=== PATIENT | female | born 1955 | race Caucasian/White ===

== ENCOUNTER 2025-10-24 15:26 | Observation (INO) | payer MEDICARE, MEDICAID, SELFPAY ==
[2025-10-24] VITALS (19 sets, daily range): BP systolic 144–162; BP diastolic 70–104; PULSE 99–103; RESP 9–24; TEMP 36.3–36.8; O2SAT 90–99; BMI 36.5; BMI 35.2
--- NOTE | 2025-10-24 16:05 | CRLHL7_ITS ---
For Patients: As a result of the Century Cures Act, medical imaging exams and procedure reports are released immediately into your electronic medical record. You may view this report before your referring provider. If you have questions, please contact your health care provider. INDICATION: FALL AND HIT HEAD AND NECK TECHNIQUE: CT of the head without contrast. Coronal and sagittal reformats. Bone and soft tissue algorithms. COMPARISON: No prior studies available for comparison at this institution. FINDINGS: No acute intracranial hemorrhage or extra-axial collection. No evidence of acute cortical infarction. No mass effect or midline shift. Moderate generalized parenchymal volume loss. Moderate regions of decreased attenuation within the periventricular and subcortical white matter of both cerebral hemispheres most likely reflect chronic microvascular ischemic disease and age related change in this patient. Vascular calcifications within the carotid siphons. Orbital contents are normal. No calvarial fractures. No lytic or sclerotic osseous lesions within the calvarium or skull base. Scalp and other imaged soft tissue structures are normal. Mastoid air cells are clear. IMPRESSION: No acute intracranial abnormality. Please note that all CT scans at this facility use dose modulation, iterative reconstruction, and/or weight-based dosing when appropriate to reduce radiation dose to as low as reasonably achievable. Dictated by Gabriel Pimentel MD @ 10/24/2025 5:38:48 PM (Electronically Signed)
--- NOTE | 2025-10-24 16:05 | CRLHL7_ITS ---
For Patients: As a result of the Century Cures Act, medical imaging exams and procedure reports are released immediately into your electronic medical record. You may view this report before your referring provider. If you have questions, please contact your health care provider. Indication: Fall Technique: Noncontrast axial CT of the cervical spine with coronal and sagittal reformats are provided. Comparison: No prior studies available for comparison at this institution. Findings: The overall stature, alignment of the cervical spine is within normal limits. No fractures. Prevertebral soft tissues, cervical airway, dens and lateral masses are within normal limits. Mild scattered degenerative changes of the cervical spine. C1-2: No spinal canal stenosis C2-3: No significant spinal canal stenosis or neural foramen narrowing. C3-4: Moderate interspace narrowing. Posterior disc osteophyte complex and uncovertebral joint hypertrophy. Mild left neural foraminal narrowing. No right neural foraminal narrowing. C4-5: Posterior endplate osteophytic spurring and uncovertebral joint hypertrophy. Mild left neural foraminal narrowing. No right neural foraminal narrowing or significant spinal canal stenosis. C5-6: No significant spinal canal stenosis or neural foramen narrowing. C6-7: Left uncovertebral joint hypertrophy. Mild left neural foraminal narrowing. No significant spinal canal stenosis or right neural foraminal narrowing. C7-T1: No significant spinal canal stenosis or neural foramen narrowing. The lung apices are clear. Impression: 1. No convincing radiographic evidence of acute osseous injury. 2. Scattered degenerative changes of the cervical spine. Please note that all CT scans at this facility use dose modulation, iterative reconstruction, and/or weight-based dosing when appropriate to reduce radiation dose to as low as reasonably achievable. Dictated by Gabriel Pimentel MD @ 10/24/2025 5:45:50 PM (Electronically Signed)
--- NOTE | 2025-10-24 16:05 | CRLHL7_ITS ---
For Patients: As a result of the 21st Century Cures Act, medical imaging exams and procedure reports are released immediately into your electronic medical record. You may view this report before your referring provider. If you have questions, please contact your health care provider. Indication: Fell and hit head, neck pain, left-sided rib and back pain Technique: Postcontrast CT of the chest, abdomen, and pelvis with multiplanar reformats following Isovue mL 370 IV. Comparison: None Findings: Chest: Lungs: No consolidation. No effusion. No pneumothorax. Bibasilar atelectasis and/or scarring. Mediastinum: No acute abnormality appreciated. Lymph nodes: No gross lymphadenopathy. Soft tissues: No acute abnormality appreciated. Bones: No acute abnormality appreciated. Mild spondylosis. Abdomen and Pelvis: Hepatobiliary: No significant parenchymal abnormality is appreciated. Calcific densities are noted appearing to correlate to distal common bile duct with biliary dilation measuring 10 millimeters. Benign biliary cysts. Cholecystectomy. Spleen: Unremarkable. Pancreas: No acute abnormality appreciated. Adrenal glands: No acute abnormality appreciated. Kidneys: Irregularities of the bilateral collecting systems with the left upper pole calices appearing dense and with the right collecting system and renal pelvis demonstrating wall thickening with mild adjacent stranding. Bowel: No obstruction. No focal perienteric or pericolonic stranding is appreciated. Vascular: No acute abnormality appreciated. Trace atherosclerosis. Lymph nodes: No gross lymphadenopathy. Peritoneum: No free air. No free fluid. : Question focal thickening and hyperenhancing nodule along the posterior wall of the bladder measuring 8 millimeters. Soft tissues: Body wall eventration. Bones: No acute fracture. No lytic or blastic lesion. Degenerative changes of the spine and pelvis. Sacral stimulator present. Impression: 1. Irregularity is noted of the bilateral renal collecting systems. The left upper pole calices appear dense, the right collecting system and renal pelvis demonstrates wall thickening and mild adjacent stranding, and there is focal thickening and hyperenhancing nodule suspected along the posterior wall the bladder measuring 8 millimeters. Infectious, inflammatory, and malignant etiologies are on the differential for all of the above. Additionally, given trauma, small volume blood products in the left renal collecting system could give a similar appearance. Correlation with symptoms and laboratory markers recommended, along with a nonemergent outpatient renal protocol CT with added urogram phase. 2. Patient is status post cholecystectomy. There are calcific densities which appear to correlate to the distal common bile duct, with biliary dilation measuring 10 millimeters. No comparison study is available, but question retained stones in the common bile duct. 3. No acute traumatic abnormality appreciated. Please note that all CT scans at this facility use dose modulation, iterative reconstruction, and/or weight-based dosing when appropriate to reduce radiation dose to as low as reasonably achievable. Dictated by Merrill Crouch MD @ 10/24/2025 6:30:33 PM (Electronically Signed)
[2025-10-24 16:38] LABS: Appearance Urine Slightly Cloudy (Clear)
[2025-10-24 16:43] LABS: Creatinine, Point-of-Care* 1.0 mg/dl (0.6-1.3)
[2025-10-24 16:44] LABS: Hematocrit* 39.2 % (33.0-51.0); Hemoglobin* 12.9 gm/dL (12.0-16.0); Immature Granulocytes Abs Auto 0.02 K/uL (0.00-0.30); Immature Granulocytes Pct Auto 0.2 %; Mean Corpuscular HGB Conc 33 gm/dL (32-36); Mean Corpuscular Hemoglobin 29 pg (26-34); Mean Corpuscular Volume 87 fL (80-100); RDW Coefficient of Variation % 14.2 % (11.5-15.5); Red Blood Count* 4.50 m/uL (4.00-5.20); White Blood Count* 8.48 K/uL (4.50-11.00)
[2025-10-24 16:50] LABS: Lymphocytes Absolute Auto 0.60 K/uL (0.90-2.90); Slide Review Reflex No
[2025-10-24 16:57] LABS: Chloride* 99 mmol/L (96-114); Sodium* 136 mmol/L (135-149)
[2025-10-24 16:58] LABS: Potassium* 4.1 mmol/L (3.6-5.1)
[2025-10-24 17:00] LABS: Blood Urea Nitrogen* 20 mg/dL (7-30); Creatinine* 1.0 mg/dL (0.5-1.5); Est. Creatinine Clearance* 53.56; Estimated Glomerular Filt Rate 61 ml/min
[2025-10-24 17:01] LABS: Anion Gap 9 mEq/L (7-15); Calcium* 8.4 mg/dL (8.4-10.6); Carbon Dioxide* 28 mmol/L (20-32); Glucose* 98 mg/dL (60-115)
--- NOTE | 2025-10-24 18:34 | ED.FALL ---
HPI - Fall General Date Seen: 10/24/25 Chief Complaint: Fall/Minor Trauma Stated Complaint: Fall Time Seen by Provider: 10/24/25 15:42 Source: patient, family, RN notes reviewed and old records reviewed Mode of arrival: ambulatory Limitations: no limitations History of Present Illness HPI Narrative: Patient is a 70-year-old female who presents here for evaluation of a fall, she is brought in by EMS, she was actually showering in her daughter's assisted care facility, when she fell in the bathroom, on the threshold landing on the side, she missed the porcelain toilet, but landed on her left side injuring her left chest wall. She also hit her head, with this. She was not knocked out, she denies any nausea or vomiting, numbness tingling or weakness. Or any significant neck pain. This occurred approximately 30 minutes before being seen. She was able to crawl out of the bathroom, get her clothes on and then EMS was called. MD complaint: fall Fall witnessed: no Place fall occurred: home Loss of consciousness: No Symptoms prior to fall: none Context: tripped/slipped Severity: moderate Associated symptoms (after fall): denies Related Data Home Medications ?Medication ?Instructions ?Recorded ?Confirmed aspirin 81 mg tablet,delayed 81 mg PO DAILY 10/24/25 10/24/25 release (Adult Aspirin Regimen) diltiazem HCl 120 mg 120 mg PO DAILY 10/24/25 10/24/25 capsule,extended release 24 hr (Cardizem CD) venlafaxine PO 10/24/25 Allergies Allergy/AdvReac Type Severity Reaction Status Date / Time amoxicillin (From Augmentin) Allergy Unknown Verified 10/24/25 15:36 clavulanic acid (From Allergy Unknown Verified 10/24/25 15:36 Augmentin) Review of Systems Status of ROS: Reports: 10 or more systems reviewed and unremarkable except as noted in History and below [facility] Medical History (Updated 10/24/25 @ 23:52 by Daron Nguyen MD) Anxiety ?F41.9 - Anxiety disorder, unspecified (ICD-10) Depression ?F32.A - Depression, unspecified (ICD-10) Obstructive sleep apnea ?G47.33 - Obstructive sleep apnea (adult) (pediatric) (ICD-10) Paroxysmal atrial fibrillation ?I48.0 - Paroxysmal atrial fibrillation (ICD-10) 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 (ICD-10) Cervical cancer ?C53.9 - Malignant neoplasm of cervix uteri, unspecified (ICD-10) Surgical History (Updated 10/24/25 @ 23:52 by Daron Nguyen MD) History of arthroplasty of right knee ?Z96.651 - Presence of right artificial knee joint (ICD-10) History of cataract extraction with lens replacement History of appendectomy ?Z90.49 - Acquired absence of other specified parts of digestive tract (ICD-10) History of cholecystectomy ?Z90.49 - Acquired absence of other specified parts of digestive tract (ICD-10) Family History (Updated 10/24/25 @ 23:53 by Daron Nguyen MD) Father Heart disease COPD (chronic obstructive pulmonary disease) Bladder cancer Sister Heart disease Social History (Updated 10/24/25 @ 23:55 by Daron Nguyen MD) Narrative: She lives alone in [place]. He when she fell today she was visiting her 90-year-old mother's assisted living apartment in [place]. She plans to go back there when she is discharged from the hospital. She has another sister, Orin Cunningham, who also lives in [place]. Her sister Orin is healthcare power of commercial litigation attorney. Code status is full. She has remote history of smoking. She does not drink alcohol. What is your current living situation?: I presently have a place to live Problems where you live: no known problems In the past 12 months, utilities in danger of being shut off: no In past 12 months, lack of transportation kept you from medical appts, meetings, work, or getting things needed for daily living: no In the past 12 mos, have been you worried that your food would run out before you had money to buy more?: never true In the past 12 mos, the food you bought just didn't last and you didn't have money to buy more?: never true Smoking Status: Former smoker How often do you have a drink containing alcohol: never AUDIT-C Alcohol total score: 0 Non-prescribed substance use: denies use Caffeine: No How often does anyone, including family, friends and others, physically hurt you: never How often does anyone, including family, friends and others, insult or talk down to you: never How often does anyone, including family, friends and others, threaten you with harm: never How often does anyone, including family, friends and others, scream or curse at you: never service: No Exam Narrative: Exam Narrative: Patient is seen in assessed in room 3, she is lying down, she is able to roll onto her left side complaining of pain over her left side of her ribs. She has no evidence of trauma over head or neck region, she is alert oriented x3, speaking to me normally her pupils equal round reactive to light her TMs are normal, no evidence of any bruising noted over head, her neck is supple full range of motion is noted in flexion extension lateral flexion and rotation. With no tenderness over C-spine, her chest is good air entry bilaterally, but she does splint a little bit on the left side, and palpation over her lateral axillary line ribs 7 through 10. Her somewhat tender. Heart sounds no clicks murmurs or gallops her abdomen is soft and obese, there is no guarding no organomegaly bowel sounds are normal, she moves all extremities independently and well. While I was just walking out of the room, the nurse came and got me, she P the urine, that was bloody read, CT scans of her chest abdomen pelvis the head and neck are ordered. Const: Vital Signs, click to edit/add: Vital Signs - 24 hr 10/24/25 15:29 10/24/25 15:32 10/24/25 16:29 Temperature 97.4 F L Pulse Rate 99 Pulse Rate [Pulse Oximeter] 99 Respiratory Rate 16 Blood Pressure 144/72 H Blood Pressure [Ri ght Upper Arm] 144/72 H Pulse Oximetry 93 93 95 Oxygen Delivery Me thod Room Air 10/24/25 17:04 10/24/25 18:02 10/24/25 19:00 Temperature Pulse Rate 100 100 103 H Pulse Rate [Pulse Oximeter] Respiratory Rate 12 20 11 L Blood Pressure 153/95 H 162/104 H Blood Pressure [Ri ght Upper Arm] Pulse Oximetry 93 96 91 Oxygen Delivery Me thod 10/24/25 19:01 10/24/25 19:17 10/24/25 19:30 Temperature Pulse Rate 101 H 101 H 102 H Pulse Rate [Pulse Oximeter] Respiratory Rate 18 14 13 Blood Pressure 150/88 H 159/80 H Blood Pressure [Ri ght Upper Arm] Pulse Oximetry 93 94 90 Oxygen Delivery Me thod 10/24/25 19:33 10/24/25 19:47 10/24/25 20:00 Temperature Pulse Rate 103 H 101 H 100 Pulse Rate [Pulse Oximeter] Respiratory Rate 16 14 9 L Blood Pressure 157/84 H 154/81 H Blood Pressure [Ri ght Upper Arm] Pulse Oximetry 90 92 90 Oxygen Delivery Me thod 10/24/25 20:03 10/24/25 20:22 10/24/25 20:42 Temperature Pulse Rate 102 H 101 H 100 Pulse Rate [Pulse Oximeter] Respiratory Rate 15 18 18 Blood Pressure 145/82 H 160/97 H 162/84 H Blood Pressure [Ri ght Upper Arm] Pulse Oximetry 90 91 90 Oxygen Delivery Me thod 10/24/25 21:02 10/24/25 21:22 Temperature Pulse Rate 100 100 Pulse Rate [Pulse Oximeter] Respiratory Rate 24 14 Blood Pressure 160/74 H 162/82 H Blood Pressure [Ri ght Upper Arm] Pulse Oximetry 91 91 Oxygen Delivery Me thod Course Vital Signs Vital signs: Initial Vital Signs Pulse Rate 99 10/24/25 15:29 Blood Pressure 144/72 H 10/24/25 15:29 Blood Pressure Mean 96 10/24/25 15:29 Pulse Oximetry 93 10/24/25 15:29 Vital Signs Pulse Rate 99 10/24/25 15:29 Blood Pressure 144/72 H 10/24/25 15:29 Pulse Oximetry 93 10/24/25 15:29 Temperature 98.3 F 10/24/25 22:49 Pulse Rate 99 10/24/25 23:00 Respiratory Rate 16 10/24/25 23:00 Blood Pressure 159/70 H 10/24/25 22:49 Pulse Oximetry 94 10/24/25 22:49 Oxygen Delivery Method Room Air 10/24/25 22:49 Medications Administered Medications: Discontinued Medications Generic Name Dose Route Start Last Admin Trade Name Freq PRN Reason Stop Dose Admin Hydrocodone Bitart/Acetaminophen 2 tab 10/24/25 21:23 10/24/25 21:28 Hydrocodone-Acetamin 5-325 Mg 1 Tab PO 10/24/25 21:24 2 tab ONCE ONE Administration Hydromorphone HCl 0.5 mg 10/24/25 16:05 10/24/25 16:33 Hydromorphone 0.5 Mg/0.5 Ml Inj IVP 10/24/25 16:06 0.5 mg ONCE ONE Administration Hydromorphone HCl 0.5 mg 10/24/25 18:10 10/24/25 18:17 Hydromorphone 0.5 Mg/0.5 Ml Inj IVP 10/24/25 18:11 0.5 mg ONCE ONE Administration Sodium Chloride 1,000 mls @ 1,000 mls/hr 10/24/25 16:15 10/24/25 18:04 0.9 % Sodium Chloride 1000 Ml IV 10/24/25 17:14 Infused .Q1H GRACIELA Infusion Sodium Chloride 1,000 mls @ 1,000 mls/hr 10/24/25 19:00 10/24/25 20:09 0.9 % Sodium Chloride 1000 Ml IV 10/24/25 19:59 Infused .Q1H GRACIELA Infusion - Fall Lab Data Labs: Lab Results 10/24/25 10/24/25 10/24/25 Range/Units 16:06 16:15 16:43 WBC 8.48 (4.50-11.00) K/uL RBC 4.50 (4.00-5.20) m/uL Hgb 12.9 (12.0-16.0) gm/dL Hct 39.2 (33.0-51.0) % MCV 87 (80-100) fL MCH 29 (26-34) pg MCHC 33 (32-36) gm/dL RDW Coeff of [place] 14.2 (11.5-15.5) % Plt Count 214 (140-440) K/uL Neut % (Auto) 87.2 H (42.0-72.0) % Lymph % (Auto) 7.3 L (20-44) % [place] % (Auto) 4.4 (0.0-11.0) % Eos % (Auto) 0.8 (0.0-7.0) % Baso % (Auto) 0.1 (0.0-3.0) % Neut # (Auto) 7.40 H (1.7-7.0) K/uL Lymph # (Auto) 0.60 L (0.90-2.90) K/uL [place] # (Auto) 0.40 (0.00-0.90) K/UL Eos # (Auto) 0.07 (0.00-0.50) K/uL Baso # (Auto) 0.01 (0.00-0.30) K/uL Abs Immat Gran (auto) 0.02 (0.00-0.30) K/uL Imm/Tot Granulo (auto) 0.2 % Sodium 136 (135-149) mmol/L Potassium 4.1 (3.6-5.1) mmol/L Chloride 99 (96-114) mmol/L Carbon Dioxide 28 (20-32) mmol/L Anion Gap 9 (7-15) mEq/L BUN 20 (7-30) mg/dL Creatinine 1.0 (0.5-1.5) mg/dL Estimated Creat Clear 53.56 Estimated GFR 61 ml/min Glucose 98 (60-115) mg/dL Calcium 8.4 (8.4-10.6) mg/dL Urine Color Brown A (Yellow) Urine Appearance Slightly Cloudy A (Clear) Urine pH 6.0 (5.0-8.5) Ur Specific [place] 1.025 (1.000-1.030) Urine Protein 3+ A (Negative) Urine Glucose (UA) Negative (Negative) Urine Ketones Negative (Negative) Urine Blood 3+ A (Negative) Urine Nitrite Positive A (Negative) Urine Bilirubin 1+ A (Negative) Urine Urobilinogen 2.0 A (0.2-1.0) Ur Leukocyte Esterase Trace A (Negative) Urine RBC >100 A (0-2) Urine WBC 5-10 A (0-5) Ur Squamous Epith Cells Few (None-Few) Urine Bacteria Few A (None) POC Creatinine 1.0 (0.6-1.3) mg/dl Discharge Plan Discharge Clinical Impression: Fall, Hematuria, Closed rib fracture Patient Disposition: Admitted As Observation Condition: Improved Activity Level: Light activity Discharge Diet: Regular
[2025-10-24] MEDS: HYDROCODONE-ACETAMIN 5-325 MG 1 TAB 2 TAB PO (21:28)
--- NOTE | 2025-10-24 23:34 | PM.IMHP1 ---
Assessment and Plan Assessment and plan (1) Kidney trauma: Problem comment: Fell on left flank, CT shows possible hematoma in the kidney. Patient had gross hematuria which is resolving. Conservative management Status: Acute (2) Fall: Problem comment: Accidental fall. Evaluate mobility Status: Acute (3) Traumatic injury of rib: Problem comment: Left lower rib injury with possible rib fracture. Conservative management Status: Acute (4) Obstructive sleep apnea: Problem comment: Recently had a home sleep study. Results are pending. Clinically appears suspicious for MARIBN. Caution with opioids. Status: Suspected (5) Inadequate pain control: Problem comment: Patient has had difficulty managing pain since her fall. Currently unable to reposition in bed without severe pain. Initiate multi modal control with topical ice, naproxen and oxycodone. Status: Acute (6) Obesity (BMI 30-39.9): Status: Acute Plan 70-year-old female with recent fall and left flank, kidney, rib injuries and severe pain. Admit for pain control and monitoring for complications of injury to kidney and chest wall. Anticipate potential for some respiratory compromise due to rib injury, sleep apnea, opioid pain management. Total Time Spent Total Time Spent: Total time spent is 70 minutes in coordination of care, reviewing outside records, discussing with patient ongoing management of pain. Hospitalist- H&P: HPI History of Present Illness Time Seen by Provider: 23:34 Date Seen: 10/24/25 Chief complaint: Fall Narrative: Usha Howard is a 70 year old female admitted to the hospital after a fall injuring her left flank/ribs. She was at her mother's assisted living apartment in [place]. She was taking a shower and stepping over the threshold of the walk-in shower when she lost her balance and fell landing on her left lower ribs. She said she also hit her head. She denies loss of consciousness. She reports that she was feeling well before this happened and there was no sense of lightheadedness or presyncope. She was not dizzy. she just lost her balance. She reports normally that she walks independently with good balance. Because of the severity of pain she called 911. In the emergency department evaluation showed changes to both kidneys including findings in the left kidney that could be markers for small hematoma and bleeding. Also abnormalities around the gallbladder possibly indicating stones in the common bile duct. Patient has had no GI symptoms or pain in that area. Initially she had visible blood in her urine, gross hematuria, which resolved during her emergency department stay. She was unable to move secondary to pain and so was admitted for management of her pain. Review of Systems Narrative: She reports known new or acute illness or injury other than outlined above. She does have significant bowel and bladder problems secondary to radiation treatment for cervical cancer Medical Decision Making Medical Decision Making Has patient completed a Health Care Directive: No During This Stay, Who Would You Like To Make Decisions For You In The Event You Are Unable To Make Them For Yourself?: Orin Cunningham, sister [facility] Medical History (Updated 10/25/25 @ 00:01 by Daron Nugyen MD) Obesity (BMI 30-39.9) ?E66.9 - Obesity, unspecified (ICD-10) Anxiety ?F41.9 - Anxiety disorder, unspecified (ICD-10) Depression ?F32.A - Depression, unspecified (ICD-10) Obstructive sleep apnea ?G47.33 - Obstructive sleep apnea (adult) (pediatric) (ICD-10) Paroxysmal atrial fibrillation ?I48.0 - Paroxysmal atrial fibrillation (ICD-10) 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 (ICD-10) Cervical cancer ?C53.9 - Malignant neoplasm of cervix uteri, unspecified (ICD-10) Surgical History (Updated 10/24/25 @ 23:52 by Daron Nguyen MD) History of arthroplasty of right knee ?Z96.651 - Presence of right artificial knee joint (ICD-10) History of cataract extraction with lens replacement History of appendectomy ?Z90.49 - Acquired absence of other specified parts of digestive tract (ICD-10) History of cholecystectomy ?Z90.49 - Acquired absence of other specified parts of digestive tract (ICD-10) Family History (Updated 10/24/25 @ 23:53 by Daron Nguyen MD) Father Heart disease COPD (chronic obstructive pulmonary disease) Bladder cancer Sister Heart disease Social History (Updated 10/24/25 @ 23:55 by Daron Nguyen MD) Narrative: She lives alone in [place]. He when she fell today she was visiting her 90-year-old mother's assisted living apartment in [place]. She plans to go back there when she is discharged from the hospital. She has another sister, Orin Cunningham, who also lives in [place]. Her sister Orin is healthcare power of assistant county attorney. Code status is full. She has remote history of smoking. She does not drink alcohol. What is your current living situation?: I presently have a place to live Problems where you live: no known problems In the past 12 months, utilities in danger of being shut off: no In past 12 months, lack of transportation kept you from medical appts, meetings, work, or getting things needed for daily living: no In the past 12 mos, have been you worried that your food would run out before you had money to buy more?: never true In the past 12 mos, the food you bought just didn't last and you didn't have money to buy more?: never true Smoking Status: Former smoker How often do you have a drink containing alcohol: never AUDIT-C Alcohol total score: 0 Non-prescribed substance use: denies use Caffeine: No How often does anyone, including family, friends and others, physically hurt you: never How often does anyone, including family, friends and others, insult or talk down to you: never How often does anyone, including family, friends and others, threaten you with harm: never How often does anyone, including family, friends and others, scream or curse at you: never service: No Meds Home Medications and Allergies Home Medications ?Medication ?Instructions ?Recorded ?Confirmed ?Type aspirin 81 mg tablet,delayed 81 mg PO DAILY 10/24/25 10/24/25 History release (Adult Aspirin Regimen) diltiazem HCl 120 mg 120 mg PO DAILY 10/24/25 10/24/25 History capsule,extended release 24 hr (Cardizem CD) venlafaxine PO 10/24/25 History Home Medication Comments: Venlafaxine 225 mg at bedtime. All meds taken at bedtime Allergies Allergy/AdvReac Type Severity Reaction Status Date / Time amoxicillin (From Augmentin) Allergy Unknown Verified 10/24/25 15:36 clavulanic acid (From Allergy Unknown Verified 10/24/25 15:36 Augmentin) Exam Narrative: Exam Narrative: She is alert and appears in no distress lying supine in bed. She gives her own history with good detail. Eyes normal. No facial asymmetry. Oropharynx with small airway. Neck is supple without mass or adenopathy. She is unable to sit up or significantly roll over in bed. Attempts to do so are quite painful in her left flank. This is in approximately the mid axillary line at approximately the costal margin on the left but the whole left side of her chest wall is quite tender. Small bruising is present in this area as well. Respirations are clear to auscultation without wheezing rales or rhonchi. Cardiovascular: S1, S2, regular rate and rhythm. Abdomen: Bowel sounds active. Abdomen is soft with tenderness in the left upper quadrant near the costal margin. No mass. No right upper quadrant tenderness. Upper extremities without obvious trauma. Lower extremities without obvious trauma. In the left proximal anterior thigh she has a scar which she attributes to an abscess that formed there after her appendix ruptured when she was young. She has intact pedal pulses bilateral trace edema. Const: Vital Signs, click to edit/add: Vital Signs - 24 hr 10/24/25 15:29 10/24/25 15:32 10/24/25 16:29 Temperature 97.4 F L Pulse Rate 99 Pulse Rate [Pulse Oximeter] 99 Respiratory Rate 16 Blood Pressure 144/72 H Blood Pressure [Ri ght Arm] Blood Pressure [Ri ght Upper Arm] 144/72 H Pulse Oximetry 93 93 95 Oxygen Delivery Me thod Room Air 10/24/25 17:04 10/24/25 18:02 10/24/25 19:00 Temperature Pulse Rate 100 100 103 H Pulse Rate [Pulse Oximeter] Respiratory Rate 12 20 11 L Blood Pressure 153/95 H 162/104 H Blood Pressure [Ri ght Arm] Blood Pressure [Ri ght Upper Arm] Pulse Oximetry 93 96 91 Oxygen Delivery Me thod 10/24/25 19:01 10/24/25 19:17 10/24/25 19:30 Temperature Pulse Rate 101 H 101 H 102 H Pulse Rate [Pulse Oximeter] Respiratory Rate 18 14 13 Blood Pressure 150/88 H 159/80 H Blood Pressure [Ri ght Arm] Blood Pressure [Ri ght Upper Arm] Pulse Oximetry 93 94 90 Oxygen Delivery Me thod 10/24/25 19:33 10/24/25 19:47 10/24/25 20:00 Temperature Pulse Rate 103 H 101 H 100 Pulse Rate [Pulse Oximeter] Respiratory Rate 16 14 9 L Blood Pressure 157/84 H 154/81 H Blood Pressure [Ri ght Arm] Blood Pressure [Ri ght Upper Arm] Pulse Oximetry 90 92 90 Oxygen Delivery Me thod 10/24/25 20:03 10/24/25 20:22 10/24/25 20:42 Temperature Pulse Rate 102 H 101 H 100 Pulse Rate [Pulse Oximeter] Respiratory Rate 15 18 18 Blood Pressure 145/82 H 160/97 H 162/84 H Blood Pressure [Ri ght Arm] Blood Pressure [Ri ght Upper Arm] Pulse Oximetry 90 91 90 Oxygen Delivery Me thod 10/24/25 21:02 10/24/25 21:22 10/24/25 22:49 Temperature 98.3 F Pulse Rate 100 100 Pulse Rate [Pulse Oximeter] 99 Respiratory Rate 24 14 16 Blood Pressure 160/74 H 162/82 H Blood Pressure [Ri ght Arm] 159/70 H Blood Pressure [Ri ght Upper Arm] Pulse Oximetry 91 91 99 Oxygen Delivery Me thod Room Air 10/24/25 22:49 10/24/25 23:00 Temperature Pulse Rate Pulse Rate [Pulse Oximeter] 99 Respiratory Rate 16 16 Blood Pressure Blood Pressure [Ri ght Arm] Blood Pressure [Ri ght Upper Arm] Pulse Oximetry 94 Oxygen Delivery Me thod Room Air Documenting provider has reviewed patient's vital signs: yes Hospitalist - H&P: Result Labs Labs: Short CBC 10/24/25 Range/Units 16:06 WBC 8.48 (4.50-11.00) K/uL Hgb 12.9 (12.0-16.0) gm/dL Hct 39.2 (33.0-51.0) % Plt Count 214 (140-440) K/uL BMP 10/24/25 16:06 Sodium 136 Potassium 4.1 Chloride 99 Carbon Dioxide 28 BUN 20 Creatinine 1.0 Glucose 98 Calcium 8.4 Urine 10/24/25 Range/Units 16:15 Urine Color Brown A (Yellow) Urine Appearance Slightly Cloudy A (Clear) Urine pH 6.0 (5.0-8.5) Ur Specific [place] 1.025 (1.000-1.030) Urine Protein 3+ A (Negative) Urine Glucose (UA) Negative (Negative) Imaging CT Chest/Ab/Pelvis: Radiologist's impression: Indication: Fell and hit head, neck pain, left-sided rib and back pain Technique: Postcontrast CT of the chest, abdomen, and pelvis with multiplanar reformats following Isovue mL 370 IV. Comparison: None Findings: Chest: Lungs: No consolidation. No effusion. No pneumothorax. Bibasilar atelectasis and/or scarring. Mediastinum: No acute abnormality appreciated. Lymph nodes: No gross lymphadenopathy. Soft tissues: No acute abnormality appreciated. Bones: No acute abnormality appreciated. Mild spondylosis. Abdomen and Pelvis: Hepatobiliary: No significant parenchymal abnormality is appreciated. Calcific densities are noted appearing to correlate to distal common bile duct with biliary dilation measuring 10 millimeters. Benign biliary cysts. Cholecystectomy. Spleen: Unremarkable. Pancreas: No acute abnormality appreciated. Adrenal glands: No acute abnormality appreciated. Kidneys: Irregularities of the bilateral collecting systems with the left upper pole calices appearing dense and with the right collecting system and renal pelvis demonstrating wall thickening with mild adjacent stranding. Bowel: No obstruction. No focal perienteric or pericolonic stranding is appreciated. Vascular: No acute abnormality appreciated. Trace atherosclerosis. Lymph nodes: No gross lymphadenopathy. Peritoneum: No free air. No free fluid. : Question focal thickening and hyperenhancing nodule along the posterior wall of the bladder measuring 8 millimeters. Soft tissues: Body wall eventration. Bones: No acute fracture. No lytic or blastic lesion. Degenerative changes of the spine and pelvis. Sacral stimulator present. Impression: 1. Irregularity is noted of the bilateral renal collecting systems. The left upper pole calices appear dense, the right collecting system and renal pelvis demonstrates wall thickening and mild adjacent stranding, and there is focal thickening and hyperenhancing nodule suspected along the posterior wall the bladder measuring 8 millimeters. Infectious, inflammatory, and malignant etiologies are on the differential for all of the above. Additionally, given trauma, small volume blood products in the left renal collecting system could give a similar appearance. Correlation with symptoms and laboratory markers recommended, along with a nonemergent outpatient renal protocol CT with added urogram phase. 2. Patient is status post cholecystectomy. There are calcific densities which appear to correlate to the distal common bile duct, with biliary dilation measuring 10 millimeters. No comparison study is available, but question retained stones in the common bile duct. 3. No acute traumatic abnormality appreciated.
[2025-10-25] MEDS: ASPIRIN 81 MG TABLET EC PO ×2 (00:11→20:41)
[2025-10-25] MEDS: NAPROXEN 250 MG TABLET PO ×3 (00:11→17:30)
[2025-10-25] MEDS: VENLAFAXINE ER 75 MG CAPSULE 225 MG PO ×2 (00:12→20:41)
[2025-10-25 03:00] VITALS: BP 138/93; PULSE 88; RESP 18; TEMP 36.8; O2SAT 92
[2025-10-25] MEDS: OXYCODONE 1 MG/ML ORAL SOLN 5 MG PO ×2 (03:48→08:53)
[2025-10-25 07:00] VITALS: BP 150/73; PULSE 88; RESP 18; TEMP 36.4; O2SAT 92
[2025-10-25] MEDS: SODIUM CHLORIDE 0.9 % (FLUSH) 10 ML SYRINGE 5 ML IVF ×2 (08:58→20:42)
[2025-10-25 11:00] VITALS: BP 151/76; PULSE 85; RESP 18; TEMP 36.6; O2SAT 93
[2025-10-25] MEDS: ACETAMINOPHEN 325 MG TABLET 650 MG PO ×2 (12:43→20:54)
[2025-10-25 13:58] LABS: Appearance Urine Slightly Cloudy (Clear)
--- NOTE | 2025-10-25 14:09 | PC.SOCIAL ---
Discharge planning: Met with pt regarding d/c planning. Pt lives in her own home in [place], [place] and is visiting and staying with her mother this week who lives in [facility] in [place], [place]. She fell at her mother's home. Pt plans to return to her mother's home at discharge. She does not expect to need any assistance at discharge and does not need to help her mother with anything at her home. Pt states she will stay with her mother for awhile and then move back to her own home. Pt shared she had knee surgery previously and has all the DME needed for her recovery from that at her home in [place]. Pt states she will decide what DME she needs after discharge and her sister could drive to her home to get anything she needs. Pt states her sister, Orin, will pick her up for the ride to her mother's home at discharge. Pt states that if there are any prescriptions needed at discharge, she would like those sent to [facility] in [place]. Pt is aware fo how to contact social work job titles if needed.
[2025-10-25 15:00] VITALS: BP 150/78; PULSE 83; RESP 18; O2SAT 91
--- NOTE | 2025-10-25 15:06 | PM.IMPN1 ---
Assessment and Plan Assessment and plan (1) Kidney trauma: Problem comment: Fell on left flank, CT shows possible hematoma in the kidney. Patient had gross hematuria which is resolving. Conservative management - 10/25 Urine remains grossly bloody, 3+. UC pending. I called urology at [facility] (I did not yet know patient had previously seen a urologist at [facility]), and spoke with Queta Canales, urology PA. She told me she was having her urologist look at the CT abd/pelvis images I had pushed to them and recommended continued monitoring in the hospital for now while we wait for UC and said she would have the urologist call us once he'd looked at the images. I gave Usha an update about this. Since UO is low, I will start LR at 125cc/hr. Recheck Hgb and BMP in am. Status: Acute (2) Traumatic injury of rib: Problem comment: Left lower rib injury with possible rib fracture. Conservative management Status: Acute (3) Fall: Problem comment: Accidental fall. Mobility improving. Seen by PT today. Okay to d/c home when medically ready. Status: Acute (4) Inadequate pain control: Problem comment: Patient has had difficulty managing pain since her fall. Currently unable to reposition in bed without severe pain. Initiate multi modal control with topical ice, naproxen and oxycodone. Status: Acute (5) Obstructive sleep apnea: Problem comment: Recently had a home sleep study. Results are pending. Clinically appears suspicious for MARBIN. Caution with opioids. Status: Suspected (6) Obesity (BMI 30-39.9): Status: Acute Total Time Spent Total Time Spent: Today I spent 50 minutes seeing the patient, discussing with Urology, discussing with the patient, reviewing [facility] and EPIC notes/diagnostics/labs, discussing the care plan with our care team that includes social work, PT/OT, pharmacy, RT, long term and documenting my impressions and plan in the medical record. Subjective Time Seen by Provider: 10:49 Date Seen: 10/25/25 Interval history: Usha tells me she has a bit less pain today and is able to move better. She is concerned that her urine seemed like it was clearing up, but now it seems to her that it is getting bloodier again. Denies any gross hematuria or urinary symptoms prior to fall. Nurse reports low UO. Exam Narrative: Exam Narrative: General: No acute distress. Awake, alert, oriented. No pallor. No jaundice. Urine in external catheter grossly bloody, without clots. Oropharynx: Clear. Mucous membranes moist. Cardiovascular: Regular rate and rhythm. No murmurs, gallops, or rubs. Respiratory: Clear to auscultation bilaterally. No wheezes or crackles. Abdomen: Bowel sounds present. Soft, nondistended, nontender. Back: 2 linear areas of ecchymosis over the left flank, inferior to the costal margin. This area is tender to palpation, no fluctuance or mass noted. Cervical, thoracic, lumbar and sacral spines are nontender to palpation. There is tenderness over the SI joints bilaterally, left more than right. Extremities: No lower extremity edema. Const: Vital Signs, click to edit/add: Vital Signs - 24 hr 10/24/25 15:29 10/24/25 15:32 10/24/25 16:29 Temperature 97.4 F L Pulse Rate 99 Pulse Rate [Pulse Oximeter] 99 Respiratory Rate 16 Blood Pressure 144/72 H Blood Pressure [Ri ght Arm] Blood Pressure [Ri ght Upper Arm] 144/72 H Pulse Oximetry 93 93 95 Oxygen Delivery Me thod Room Air 10/24/25 17:04 10/24/25 18:02 10/24/25 19:00 Temperature Pulse Rate 100 100 103 H Pulse Rate [Pulse Oximeter] Respiratory Rate 12 20 11 L Blood Pressure 153/95 H 162/104 H Blood Pressure [Ri ght Arm] Blood Pressure [Ri ght Upper Arm] Pulse Oximetry 93 96 91 Oxygen Delivery Me thod 10/24/25 19:01 10/24/25 19:17 10/24/25 19:30 Temperature Pulse Rate 101 H 101 H 102 H Pulse Rate [Pulse Oximeter] Respiratory Rate 18 14 13 Blood Pressure 150/88 H 159/80 H Blood Pressure [Ri ght Arm] Blood Pressure [Ri ght Upper Arm] Pulse Oximetry 93 94 90 Oxygen Delivery Me thod 10/24/25 19:33 10/24/25 19:47 10/24/25 20:00 Temperature Pulse Rate 103 H 101 H 100 Pulse Rate [Pulse Oximeter] Respiratory Rate 16 14 9 L Blood Pressure 157/84 H 154/81 H Blood Pressure [Ri ght Arm] Blood Pressure [Ri ght Upper Arm] Pulse Oximetry 90 92 90 Oxygen Delivery Me thod 10/24/25 20:03 10/24/25 20:22 10/24/25 20:42 Temperature Pulse Rate 102 H 101 H 100 Pulse Rate [Pulse Oximeter] Respiratory Rate 15 18 18 Blood Pressure 145/82 H 160/97 H 162/84 H Blood Pressure [Ri ght Arm] Blood Pressure [Ri ght Upper Arm] Pulse Oximetry 90 91 90 Oxygen Delivery Me thod 10/24/25 21:02 10/24/25 21:22 10/24/25 22:49 Temperature 98.3 F Pulse Rate 100 100 Pulse Rate [Pulse Oximeter] 99 Respiratory Rate 24 14 16 Blood Pressure 160/74 H 162/82 H Blood Pressure [Ri ght Arm] 159/70 H Blood Pressure [Ri ght Upper Arm] Pulse Oximetry 91 91 99 Oxygen Delivery Me thod Room Air 10/24/25 22:49 10/24/25 23:00 10/25/25 03:00 Temperature 98.3 F Pulse Rate Pulse Rate [Pulse Oximeter] 99 88 Respiratory Rate 16 16 18 Blood Pressure Blood Pressure [Ri ght Arm] 138/93 H Blood Pressure [Ri ght Upper Arm] Pulse Oximetry 94 92 Oxygen Delivery Me thod Room Air Room Air 10/25/25 07:00 10/25/25 07:00 10/25/25 11:00 Temperature 97.5 F L 97.8 F Pulse Rate Pulse Rate [Pulse Oximeter] 88 85 Respiratory Rate 18 18 Blood Pressure Blood Pressure [Ri ght Arm] 150/73 H 151/76 H Blood Pressure [Ri ght Upper Arm] Pulse Oximetry 92 92 93 Oxygen Delivery Me thod Room Air Room Air Room Air Documenting provider has reviewed patient's vital signs: yes Labs Labs: Laboratory Results - last 24 hr 10/24/25 10/24/25 10/24/25 16:06 16:15 16:43 WBC 8.48 RBC 4.50 Hgb 12.9 Hct 39.2 MCV 87 MCH 29 MCHC 33 RDW Coeff of [place] 14.2 Plt Count 214 Neut % (Auto) 87.2 H Lymph % (Auto) 7.3 L [place] % (Auto) 4.4 Eos % (Auto) 0.8 Baso % (Auto) 0.1 Neut # (Auto) 7.40 H Lymph # (Auto) 0.60 L [place] # (Auto) 0.40 Eos # (Auto) 0.07 Baso # (Auto) 0.01 Abs Immat Gran (auto) 0.02 Imm/Tot Granulo (auto) 0.2 Sodium 136 Potassium 4.1 Chloride 99 Carbon Dioxide 28 Anion Gap 9 BUN 20 Creatinine 1.0 Estimated Creat Clear 53.56 Estimated GFR 61 Glucose 98 Calcium 8.4 Urine Color Brown A Urine Appearance Slightly Cloudy A Urine pH 6.0 Ur Specific [place] 1.025 Urine Protein 3+ A Urine Glucose (UA) Negative Urine Ketones Negative Urine Blood 3+ A Urine Nitrite Positive A Urine Bilirubin 1+ A Urine Urobilinogen 2.0 A Ur Leukocyte Esterase Trace A Urine RBC >100 A Urine WBC 5-10 A Ur Squamous Epith Cells Few Urine Bacteria Few A POC Creatinine 1.0 10/25/25 13:43 WBC RBC Hgb Hct MCV MCH MCHC RDW Coeff of [place] Plt Count Neut % (Auto) Lymph % (Auto) [place] % (Auto) Eos % (Auto) Baso % (Auto) Neut # (Auto) Lymph # (Auto) [place] # (Auto) Eos # (Auto) Baso # (Auto) Abs Immat Gran (auto) Imm/Tot Granulo (auto) Sodium Potassium Chloride Carbon Dioxide Anion Gap BUN Creatinine Estimated Creat Clear Estimated GFR Glucose Calcium Urine Color Brown A Urine Appearance Slightly Cloudy A Urine pH 6.5 Ur Specific [place] 1.015 Urine Protein 2+ A Urine Glucose (UA) Negative Urine Ketones Negative Urine Blood 3+ A Urine Nitrite Positive A Urine Bilirubin Negative Urine Urobilinogen 0.2 Ur Leukocyte Esterase 1+ A Urine RBC Urine WBC Ur Squamous Epith Cells Urine Bacteria POC Creatinine
[2025-10-25] MEDS: LACTATED RINGERS 1000 ML 1,000 ML 125 ML IV (15:35)
[2025-10-25 16:25] LABS: Hematocrit* 38.1 % (33.0-51.0); Hemoglobin* 12.0 gm/dL (12.0-16.0); Immature Granulocytes Abs Auto 0.01 K/uL (0.00-0.30); Immature Granulocytes Pct Auto 0.2 %; Lymphocytes Absolute Auto 0.90 K/uL (0.90-2.90); Mean Corpuscular HGB Conc 32 gm/dL (32-36); Mean Corpuscular Hemoglobin 28 pg (26-34); Mean Corpuscular Volume 90 fL (80-100); RDW Coefficient of Variation % 14.7 % (11.5-15.5); Red Blood Count* 4.25 m/uL (4.00-5.20); Slide Review Reflex No; White Blood Count* 5.72 K/uL (4.50-11.00)
[2025-10-25 16:38] LABS: Chloride* 100 mmol/L (96-114)
[2025-10-25 16:39] LABS: Potassium* 4.1 mmol/L (3.6-5.1); Sodium* 136 mmol/L (135-149)
[2025-10-25 16:41] LABS: Blood Urea Nitrogen* 12 mg/dL (7-30); Creatinine* 1.1 mg/dL (0.5-1.5); Est. Creatinine Clearance* 48.69; Estimated Glomerular Filt Rate 54 ml/min
[2025-10-25 16:42] LABS: Anion Gap 7 mEq/L (7-15); Calcium* 8.4 mg/dL (8.4-10.6); Carbon Dioxide* 29 mmol/L (20-32); Glucose* 113 mg/dL (60-115)
--- NOTE | 2025-10-25 18:43 | PC.NURSE ---
End of Shift Note 256 Patient has been very pleasant and cooperative throughout shift. VSS. Afebrile. Patient has two 2bruises on her left flank. She states pain is considerable with movement. A&Ox3 with intermittent periods of forgetfulness. Uses call light appropriately. Purewick in place. Call light with reach.
[2025-10-25 19:00] VITALS: BP 140/73; PULSE 86; RESP 18; TEMP 36.3; O2SAT 92
[2025-10-25 22:54] VITALS: BP 136/72; PULSE 89; RESP 18; TEMP 36.4; O2SAT 91
[2025-10-26] MEDS: LACTATED RINGERS 1000 ML 1,000 ML 125 ML IV (00:10)
[2025-10-26] MEDS: ACETAMINOPHEN 325 MG TABLET 650 MG PO ×2 (02:21→06:31)
--- NOTE | 2025-10-26 02:53 | PC.NURSE ---
Shift Note: Pt friendly and cooperative, able to verbalize her needs. VSS, BP's mildly hypertensive. SpO2 dropped to 87% while asleep on RA. Pt requiring 1L/O2 via NC to maintain sats at 90% during HS. Increased difficulty with pain control this shift, sheet writer making frequent pain assessments. PRN Tylenol and Oxycodone given as well as one dose IV dilaudid overnight. Pt states pain is minimal without movement but is 8-9/10 with activity or deep breathing. She is currently declining ice and effectively uses a pillow to splint with position change. Diffuse bruising to left flank and hip visible. Urine is dark bell in appearance. Purewick in place and pt is sipping water/fluids as well as maintenance fluids running.
[2025-10-26 03:00] VITALS: BP 142/79; PULSE 91; RESP 20; TEMP 36.1; O2SAT 94
[2025-10-26 05:00] VITALS: BMI 36.1
[2025-10-26 06:50] LABS: Hematocrit* 36.7 % (33.0-51.0); Hemoglobin* 11.5 gm/dL (12.0-16.0); Immature Granulocytes Abs Auto 0.02 K/uL (0.00-0.30); Immature Granulocytes Pct Auto 0.4 %; Mean Corpuscular HGB Conc 31 gm/dL (32-36); Mean Corpuscular Hemoglobin 28 pg (26-34); Mean Corpuscular Volume 90 fL (80-100); RDW Coefficient of Variation % 14.5 % (11.5-15.5); Red Blood Count* 4.06 m/uL (4.00-5.20); White Blood Count* 4.79 K/uL (4.50-11.00)
[2025-10-26 06:52] LABS: Lymphocytes Absolute Auto 0.90 K/uL (0.90-2.90); Slide Review Reflex No
[2025-10-26 07:03] LABS: Chloride* 107 mmol/L (96-114); Potassium* 3.8 mmol/L (3.6-5.1); Sodium* 138 mmol/L (135-149)
[2025-10-26 07:06] LABS: Anion Gap 3 mEq/L (7-15); Blood Urea Nitrogen* 15 mg/dL (7-30); Calcium* 8.4 mg/dL (8.4-10.6); Carbon Dioxide* 28 mmol/L (20-32); Creatinine* 1.0 mg/dL (0.5-1.5); Est. Creatinine Clearance* 53.56; Estimated Glomerular Filt Rate 61 ml/min; Glucose* 115 mg/dL (60-115)
[2025-10-26 08:40] VITALS: BP 129/73; PULSE 77; RESP 18; TEMP 36.4; O2SAT 94
[2025-10-26] MEDS: NAPROXEN 250 MG TABLET PO (08:48)
[2025-10-26] MEDS: SODIUM CHLORIDE 0.9 % (FLUSH) 10 ML SYRINGE 5 ML IVF (08:49)
[2025-10-26 09:50] VITALS: PULSE 84; RESP 18; O2SAT 90
[2025-10-26 11:19] VITALS: BP 134/78; PULSE 84; RESP 18; TEMP 36.4; O2SAT 90
[2025-10-26] MEDS: ACETAMINOPHEN 325 MG TABLET 975 MG PO (12:25)
[2025-10-26 13:28] VITALS: RESP 18; O2SAT 90
--- NOTE | 2025-10-26 13:30 | P.DS_ITS ---
DS: Providers Provider Date Seen: 10/26/25 Date of admission: 10/24/25 22:31 Primary care physician: Not a Local Provider Admitting Clinician: Daron Nguyen MD Consults: 10/24/25 23:49 Consult to Occupational Therapy [CONS] Routine Comment: Reason(s) for OT Consult:: Evaluate and Treat Any Restrictions?:: No Restrictions Consult to Physical Therapy [CONS] Routine Comment: Reason(s) for PT Consult:: Evaluate and Treat Any Restrictions?:: No Restrictions Attending Physician on discharge: Cassandra Alcazar MD [place] Hospitalist Date of Discharge: 10/26/25 DS: Diagnosis Discharge Diagnosis (1) Fall: Status: Acute Problem details: Date of injury-10/24/2025. Mechanical fall in the shower from standing height. -fell on her left side injuring her left chest wall and back. Also hit her head. No loss of consciousness. -head CT and cervical spine CT negative -chest abdomen pelvis - no acute traumatic abnormality however the left renal collecting system showed evidence of blood products, consistent with traumatic hematoma. Patient did present with gross hematuria. (2) Kidney trauma: Status: Acute Problem details: Fell on left flank, CT shows possible hematoma in the kidney. Patient had gross hematuria which is resolving. Conservative management -patient sees Urogynecology for history of radiation cystitis secondary to treated cervical cancer. I have had her CT scan pushed to [facility] and a follow-up with both PCP and Uro-Estate Conservator is scheduled. -recommending her PCP in [place] order renal protocol CT with added urogram phase - prior to follow-up with Dr. Pabon on 11/28 (3) Acute cystitis: Status: Acute Problem details: -Klebsiella resulted from urine culture. Bactrim sensitive. Seven days of b.i.d. Bactrim prescribed. (4) Traumatic injury of rib: Status: Acute Problem details: Left lower rib injury with possible rib fracture. Conservative management -no dedicated rib imaging completed. Patient improving. (5) Obstructive sleep apnea: Status: Suspected Problem details: Recently had a home sleep study. Results are pending. Clinically appears suspicious for MARBIN. Caution with opioids. DS: Summary Hospital Course Hospital Course: HIGH YIELD CARE NOTES FOR FOLLOW-UP -fall on 10/24. Renal hematoma with gross hematuria. Management. -treated for subsequent positive urine culture of Klebsiella with Bactrim -recommend outpatient renal protocol CT with urogram phase prior to seeing evelyn Rod in follow-up BRIEF HOSPITAL COURSE: Patient was admitted 3 days. Synopsis of acute inpatient issues are outlined above. Chronic medical conditions with notable findings outlined above. Katie fell getting out of the shower. Mechanical fall. She injured her left flank and hit her head. Her trauma workup essentially was negative other than suspected nondisplaced rib fractures and left renal hematoma. She presented with pain and gross hematuria. Date of injury 10/24/2025. Initially we worked at controlling Katie's pain from her fall, we are also tracking her gross hematuria which improved daily. On 10/26/2025 she was meeting discharge criteria, she was on oral analgesics and her gross hematuria was improving with no evidence of clots or ongoing trauma. Her follow-up with her [place] [facility] PCP and [facility] uro metal trim erector for both arranged. Radiology images were pushed to [facility]. A disc was also made of her imaging for her to take to her appointment. Instructions were given to patient. DISCHARGE MEDICATIONS: See Reconciled list - SIGNIFICANT CHANGES: short term antibiotics and oxycodone Specific instructions to the patient and follow-up are outlined below. REVIEW OF SYSTEMS No new chest pain or dyspnea Pain controlled No voiding difficulties Tolerating diet challenge PHYSICAL EXAM: CONSTITUTIONAL: Conversive, good historian. A/O. Knows setting and context. GENERAL: Well-developed, in no respiratory distress. VITAL SIGNS: see record. HEENT: Sclerae are anicteric. No petechiae. CARDIAC: rhythm is regular. There is no S3 or rub. No harsh murmurs. Extremities show trace edema with symmetrical pulses. PULM: good air entry with no wheeze. NEURO: Speech is fluent. A brief neurologic exam is negative. SKIN: No rashes, petechiae, concerning changes PSYCHIATRIC: Euthymic. DISPOSITION: Home with family Time spent on discharge 37 minutes. Status at Discharge Functional status at discharge: uses cane/walker Overall status at discharge: patient is progressing back to baseline Time Spent with Patient Time attestation: Total time spent providing and/or coordinating discharge services: Time spent: Greater than 30 minutes Exam Const: Vital Signs, click to edit/add: Vital Signs - 24 hr 10/25/25 15:00 10/25/25 15:00 10/25/25 19:00 Temperature 97.4 F L Pulse Rate [Pulse Oximeter] 83 86 Respiratory Rate 18 18 Blood Pressure [Ri ght Arm] 150/78 H 140/73 H Pulse Oximetry 91 91 92 Oxygen Delivery Me thod Room Air Room Air Room Air Oxygen Flow Rate 10/25/25 22:54 10/25/25 22:54 10/25/25 22:54 Temperature 97.6 F Pulse Rate [Pulse Oximeter] 89 89 Respiratory Rate 18 18 18 Blood Pressure [Ri ght Arm] 136/72 Pulse Oximetry 91 91 Oxygen Delivery Me thod Room Air Room Air Oxygen Flow Rate 10/26/25 03:00 10/26/25 08:40 10/26/25 09:50 Temperature 97 F L 97.5 F L Pulse Rate [Pulse Oximeter] 91 77 84 Respiratory Rate 20 18 18 Blood Pressure [Ri ght Arm] 142/79 H 129/73 Pulse Oximetry 94 94 Oxygen Delivery Me thod Nasal Cannula Nasal Cannula Oxygen Flow Rate 1 1 10/26/25 09:50 10/26/25 11:19 Temperature 97.6 F Pulse Rate [Pulse Oximeter] 84 Respiratory Rate 18 18 Blood Pressure [Ri ght Arm] 134/78 Pulse Oximetry 90 90 Oxygen Delivery Me thod Room Air Room Air Oxygen Flow Rate DS: Data Data Completed and Pending Labs on day of discharge: Labs from last 24 hours 10/26/25 10/25/25 10/25/25 06:00 16:15 13:43 WBC 4.79 5.72 RBC 4.06 4.25 Hgb 11.5 L 12.0 Hct 36.7 38.1 MCV 90 90 MCH 28 28 MCHC 31 L 32 RDW Coeff of [place] 14.5 14.7 Plt Count 209 202 Neut % (Auto) 68.9 74.5 H Lymph % (Auto) 19.2 L 16.4 L [place] % (Auto) 6.3 6.1 Eos % (Auto) 5.2 2.8 Baso % (Auto) 0.0 0.0 Neut # (Auto) 3.30 4.30 Lymph # (Auto) 0.90 0.90 [place] # (Auto) 0.30 0.30 Eos # (Auto) 0.25 0.16 Baso # (Auto) 0.00 0.00 Abs Immat Gran (auto) 0.02 0.01 Imm/Tot Granulo (auto) 0.4 0.2 Sodium 138 136 Potassium 3.8 4.1 Chloride 107 100 Carbon Dioxide 28 29 Anion Gap 3 L 7 BUN 15 12 Creatinine 1.0 1.1 Estimated Creat Clear 53.56 48.69 Estimated GFR 61 54 Glucose 115 113 Calcium 8.4 8.4 Urine Color Brown A Urine Appearance Slightly Cloudy A Urine pH 6.5 Ur Specific [place] 1.015 Urine Protein 2+ A Urine Glucose (UA) Negative Urine Ketones Negative Urine Blood 3+ A Urine Nitrite Positive A Urine Bilirubin Negative Urine Urobilinogen 0.2 Ur Leukocyte Esterase 1+ A Discharge Plan Discharge Disposition: Home w/ Parent or Adult Date of Admission: 10/24/25 22:31 Attending Provider on Discharge: Cassandra Alcazar Primary Care Provider: Provider,Not a Local Condition: Improved Anticipated Discharge Date/Time: 10/26/25 10:50 Discharge Medications: New acetaminophen 325 mg Tablet 975 mg PO Q6H Qty: 90 0RF oxycodone 5 mg Tablet 2.5 mg PO Q4H PRNQty: 30 0RF sulfamethoxazole-trimethoprim [Bactrim DS] 800-160 mg tablet 1 tab PO BID Qty: 13 0RF Rx Instructions: 1st dose the evening of 10/26, complete full course Continued aspirin [Adult Aspirin Regimen] 81 mg tablet,delayed release (DR/EC) 81 mg PO HS diltiazem HCl [Cardizem CD] 120 mg capsule,extended release 24hr 120 mg PO HS venlafaxine 75 mg capsule,extended release 24hr 75 mg PO HS Rx Instructions: TOTAL DOSE = 225MG venlafaxine 150 mg capsule,extended release 24hr 150 mg PO HS Rx Instructions: TOTAL DOSE = 225MG Discharge Orders: Discharge Order (Routine); Ordered 10/26/25 Ordered By: Cassandra Alcazar Patient Education: Rib Fracture (ED), Fall Prevention for Older Adults (ED), Hematuria (ED) Additional Instructions: 1. We made a f/u with provider in [place] (see below) for f/u on this injury. There is a recommendation for a dedicated renal CT protocol with urogram to be done prior to seeing your [place] urogynecologist. This appt for 11/28 could not be moved up but it's ok. 2. Return to our ED or [facility] ED if the bleeding picks up again and its not a temporary issue after sleeping.Likely the urine will look darker in the morning then clear each day as you are drinking and walking around. 3. Your urine did grow a bacteria; we are starting and sending you on a 7 day antibiotic. 3. Tylenol should be taken on a regular basis; oxycodone at the 2.5mg dose sparingly. Activity Level: Light activity Discharge Diet: Regular Follow Up Appointments: Yael Rainey M.D., Ph.D [Other] Referral Note: Was not able to move appointment up so it will stay the same date. Uro-director e learning doc in [place] [phone] see if we can get her in before 11/28/25 Geneva Fowler [Other] - 11/04/25 10:45 am Referral Note: PCP not available for follow up Forms: [employer] Info Instructions
[2025-10-26] MEDS: SULFA/TRIMETHOPRIM 800/160 1 TAB PO (14:16)
--- NOTE | 2025-10-26 16:11 | PC.NURSE ---
shift note: AOx4. Pt pain rated 5/10 or < throughout shift. Pt up & AMB IND. Pt able to BR IND, RN & nursing director staff in to BR pt frequently; able to make BR needs known after purewick removed. Tolerating regular diet. Pt denies dizziness & SOB. Pt on RA, education provided on [employer] by RN & RT. RT in to see pt bedside. Antibiotic fall prevention education provided. Pt W/C to sister's personal vehicle by nursing staff.
== END 2025-10-26 14:58 | disposition home or self-care (01) ==
LOC: ED 21:28 → MEDSURG 22:37
PROVIDERS: Family Medicine; Admitting Provider Family Medicine; Emergency Provider Family Medicine; Visit Provider Family Medicine
DX: S37.012A Minor contusion of left kidney, initial encounter (principal); W18.2XXA Fall in (into) shower or empty bathtub, initial encounter; N30.01 Acute cystitis with hematuria; S29.9XXA Unspecified injury of thorax, initial encounter; F51.9 Sleep disorder not due to a substance or known physiological condition, unspecified; E66.9 Obesity, unspecified; Z68.30 Body mass index [BMI] 30.0-30.9, adult
CPT/HCPCS: 36415; 70450; 71260; 72125; 74177; 80048; 81001; 81003; 82565; 85025; 87086; 94664; 94761; 96374; 96375; 96376; 97116; 97161; 97165; 97535; 99284; 99285; A9270; G0378; J1171; J7030; J7120; Q9967